=== PATIENT | male | born 2000 | race Caucasian/White ===

== ENCOUNTER 2021-10-27 23:20 | Inpatient (IN) | payer BC ==
[~2021-10-27] VITALS: Ht 182.9 cm; Wt 60.8 kg
--- NOTE | 2021-10-28 00:15 | NUR ---
PATIENT BIBSELF C/O RLQ PAIN SINCE 4PM. PATIENT +VOMITTED ONCE. PATIENT IS A/O X 4, RR EVEN AND UNLABORED, NO SOB NOTED. PATIENT CONNECTED TO CARDAIC AND POX MONITOR.
[2021-10-28] MEDS ORDERED: MORPHINE SULFATE INJ 2 MG/ML DISP.SYRIN ONE (00:20)
[2021-10-28] MEDS ORDERED: ONDANSETRON HCL/PF 4 MG/2 ML VIAL ONE (00:20)
[2021-10-28 00:28] LABS: BILIRUBIN,URINE SMALL (NEGATIVE); COLOR,URINE YELLOW (YELLOW); LEUKOCYTE ESTERASE ,URINE Negative (NEGATIVE); NITRITE, URINE Negative (NEGATIVE); PH,URINE 5.5 (5.0-8.0); PROTEIN,URINE Negative (NEGATIVE); UGLUCOSE 100 MG/DL mg/dL (NEGATIVE); UROBILINOGEN,URINE 0.2 EU/dL (0.2)
[2021-10-28 00:29] LABS: BASOPHILS # (AUTO) 0.2 K/uL (0.0-0.2); BASOPHILS % (AUTO) 1.5 % (0.0-2.0); HEMATOCRIT 48 % (39-51); HEMOGLOBIN 16.5 g/dL (13.5-17.5); LYMPHOCYTES # (AUTO) 0.9 K/uL (0.8-4.8); LYMPHOCYTES % (AUTO) 7.3 % (20.0-44.0); MEAN CORPUSCULAR HGB CONC 34 g/dl (31.0-36.0); MEAN CORPUSCULAR VOLUME 92 fL (80-96); MONOCYTES # (AUTO) 0.5 K/uL (0.1-1.30); MONOCYTES % (AUTO) 4.2 % (2.0-12.0); NEUTROPHILS # (AUTO) 11.1 K/uL (1.8-8.9); PLATELET COUNT (AUTO) 198 K/uL (150-450); RED BLOOD CELL COUNT(AUTO) 5.23 MIL/uL (4.5-6.0); WHITE BLOOD COUNT (AUTO) 12.9 K/uL (4.3-11.0)
[2021-10-28] MEDS ORDERED: IV NS 0.9% 500 ML BAG IV ONE (00:30)
[2021-10-28] MEDS ORDERED: MORPHINE SULFATE INJ 2 MG/ML DISP.SYRIN IV ONE (00:30)
[2021-10-28] MEDS ORDERED: ONDANSETRON HCL/PF 4 MG/2 ML VIAL IVP ONE (00:30)
[2021-10-28 00:35] LABS: CALCIUM, SERUM 9.1 mg/dL (8.5-10.1); POTASSIUM 4.2 mmol/L (3.5-5.1)
[2021-10-28 00:41] LABS: ALBUMIN 4.7 g/dL (3.4-5.0); BILIRUBIN,DIRECT 0.1 mg/dL (0.0-0.2); BILIRUBIN,TOTAL 0.5 mg/dL (0.2-1.0); TOTAL PROTEIN, SERUM 7.7 g/dL (6.4-8.2)
--- NOTE | 2021-10-28 00:54 | NUR ---
PT RETURNED FROM CT
[2021-10-28 01:25] LABS: BAND % (MANUAL) 1 % (0.0-5.0); LYMPHOCYTES % (MANUAL) 5 % (16-48); MONOCYTES % (MANUAL) 5 % (0-11.0); NEUTROPHILS % (MANUAL) 89 (42-76)
--- NOTE | 2021-10-28 01:25 | NUR ---
COVID SWAB COLLECTED AND SENT TO LAB
[2021-10-28] MEDS ORDERED: PIPERACILLIN /TAZOBACTAM 3.375 G VIAL IV ONE ×2 (01:26→05:23)
[2021-10-28] MEDS ORDERED: PIPERACILLIN /TAZOBACTAM 3.375 G in IV D5W 50 ML IV ONE (01:30)
[2021-10-28] MEDS ORDERED: ONDANSETRON HCL/PF 4 MG/2 ML VIAL IVP PRN (01:30)
[2021-10-28] MEDS ORDERED: MAG HYDROX/AL HYDROX/SIMETH 30 ML UDC PO PRN (01:30)
[2021-10-28] MEDS ORDERED: ACETAMINOPHEN 325 MG TABLET PO PRN (01:30)
[2021-10-28] MEDS ORDERED: MAGNESIUM HYDROXIDE 30 ML UDC PO PRN (01:30)
--- NOTE | 2021-10-28 03:05 | NUR ---
BED 306-2
--- NOTE | 2021-10-28 03:08 | NUR ---
REPORT GIVEN TO RN FOR CLAUDIA. PT WILL BE TRANSFERED.
[2021-10-28 03:45] VITALS: BP 13/88
[2021-10-28 03:50] VITALS: BP 133/88
[2021-10-28] MEDS: IV NS 0.9% 1,000 ML IV PRN (03:57)
--- NOTE | 2021-10-28 04:00 | NUR ---
Patient arrived at [facility] at 0345 accompanied by staff via [employer]. A&Ox4. Patient reports chief c/o as 8/10 abdominal pain currently. Initial VS 133/88, 67, 97% on RA, 97.9, and RR 19. Patient reports being fully covid vaccinated. Reports only allergy is to flovent, and only PMH is Asthma. Pupils equal and reactive to light. Can move all extremities evenly. Lung sounds clear, bowel sounds active, abdomen soft, non-distended but tender upon palpation, RLQ is where pain is the worst. Skin intact. Educated about pain management and surgical consult in the AM. Oriented pt. to staff, unit protocols, bed controls, and call light. Set up IVF for pt. RAC #18G intact and patent. Reminded pt. of NPO status.
[2021-10-28] MEDS: MORPHINE SULFATE INJ 2 MG/ML DISP.SYRIN IV PRN ×3 (04:08→12:42)
[2021-10-28] MEDS ORDERED: PIPERACILLIN /TAZOBACTAM 3.375 G in IV D5W 50 ML IV SCH (06:00)
--- NOTE | 2021-10-28 06:22 | NUR ---
Patient finally able to sleep after PRN pain medications. Patient currently sleeping though easy to wake. Tolerating IV ABX well. Uneventful since admission.
--- NOTE | 2021-10-28 07:30 | NUR ---
MS RN MORNING NOTES RECEIVED REPORT FROM NIGHT NURSE. PT IN BED AWAKE, A&OX4. PT DISPLAYS NO S/S OF RESPIRATORY DISTRESS OR DISCOMFORT AT THIS TIME. RIGHT AC #18G IN PLACE & PATENT WITH NS RUNNING @ 100ML/HR. SAFETY MEASURES IN PLACE. PATIENT WAS EDUCATED ON USE OF CALL LIGHT FOR ASSISTANCE. BED IS LOCKED AND IN LOWEST POSITION. WILL CONTINUE TO MONITOR PT.
[2021-10-28 08:00] VITALS: BP 127/64
[2021-10-28] MEDS ORDERED: ALBU8.5H8 IH (08:12)
[2021-10-28] MEDS: PIPERACILLIN /TAZOBACTAM 3.375 G in IV D5W 50 ML IV SCH ×3 (12:08→23:14)
[2021-10-28] MEDS ORDERED: BUPIVACAINE MPF W/EPI 0.25% 30 ML VIAL ONE (13:28)
[2021-10-28] MEDS ORDERED: FENTANYL PF 100MCG/2ML AMPUL ONE (13:57)
[2021-10-28] MEDS ORDERED: MIDAZOLAM HCL 2 MG/2ML VIAL ONE (13:57)
[2021-10-28] MEDS ORDERED: ROCURONIUM BROMIDE 50 MG/5 ML ONE (13:58)
--- NOTE | 2021-10-28 14:30 | NUR ---
RN NOTES PT WAS TRANSFERRED TO OR FOR PROCEDURE @ 7337.
[2021-10-28] MEDS ORDERED: ALBUTEROL 17GM INHALER ONE (14:41)
--- NOTE | 2021-10-28 16:45 | NUR ---
RN NOTES PT RETURNED FROM OR @ 1600. PT IS AWAKE, A/OX4. NO SIGNS OF RESPIRATORY DISTRESS OR DISCOMFORT AT THIS TIME. WILL CONTINUE TO MONITOR PT.
[2021-10-28] MEDS ORDERED: MORPHINE SULFATE INJ 2 MG/ML DISP.SYRIN IV PRN (17:00)
--- NOTE | 2021-10-28 18:23 | NUR ---
MS RN CLOSING NOTES PT IN BED WITH EYES CLOSED, ABLE TO BE AROUSED. PT DISPLAYS NO S/S OF RESPIRATORY DISTRESS OR DISCOMFORT AT THIS TIME. RIGHT AC #18G IN PLACE & PATENT WITH NS RUNNING @ 100ML/HR. SAFETY MEASURES IN PLACE. PATIENT WAS EDUCATED ON USE OF CALL LIGHT FOR ASSISTANCE. BED IS LOCKED AND IN LOWEST POSITION. WILL ENDORSE CLAUDIA TO THE INSPECTOR AND UNLOADER NURSE.
--- NOTE | 2021-10-28 19:30 | NUR ---
MS RN OPENING NOTES RECEIVED PT IN BED AWAKE. A/O X4. NO S/S OF RESPIRATORY DISTRESS OR DISCOMFORT AT THIS TIME. RIGHT AC #18G, NS RUNNING @ 100ML/HR, INTACT AND PATENT. NO S/S OF BLEEDING AT THIS TIME. SAFETY PRECAUTIONS IN PLACE. BED IN LOWEST LOCKED POSITION, HOB ELEVATED, SIDE RAILS UP X2, AND CALL LIGHT AND TABLE WITHIN REACH. WILL CONTINUE TO MONITOR.
[2021-10-28 20:00] VITALS: BP 117/63
[2021-10-29] MEDS: PIPERACILLIN /TAZOBACTAM 3.375 G in IV D5W 50 ML IV SCH ×2 (06:22→11:34)
[2021-10-29] MEDS: IV NS 0.9% 1,000 ML IV PRN (06:23)
--- NOTE | 2021-10-29 06:27 | NUR ---
RN NOTE GAVE NS 0.9% 100ML/HR AT 0500. GAVE ZOSYN 3.375 MG @ 100 ML/HR AT 0600. COMPUTER WAS DOWN.
--- NOTE | 2021-10-29 06:38 | NUR ---
MS RN CLOSING NOTES PT IN BED, EYES CLOSED, EASILY AROUSABLE. A/O X4. NO S/S OF RESPIRATORY DISTRESS OR DISCOMFORT AT THIS TIME. RIGHT AC #18G, NS RUNNING @ 100ML/HR, INTACT AND PATENT. NO S/S OF BLEEDING AT THIS TIME. ALL NEEDS MET AT THIS TIME. SAFETY PRECAUTIONS IN PLACE AT ALL TIMES. BED IN LOWEST LOCKED POSITION, HOB ELEVATED, SIDE RAILS UP X2, AND CALL LIGHT AND TABLE WITHIN REACH. WILL ENDORSE TO ONCOMING NURSE FOR CLAUDIA.
[2021-10-29 06:42] LABS: BASOPHILS % (AUTO) 0.1 % (0.0-2.0); HEMATOCRIT 40 % (39-51); HEMOGLOBIN 13.9 g/dL (13.5-17.5); LYMPHOCYTES # (AUTO) 1.2 K/uL (0.8-4.8); LYMPHOCYTES % (AUTO) 10.6 % (20.0-44.0); MEAN CORPUSCULAR HGB CONC 35 g/dl (31.0-36.0); MEAN CORPUSCULAR VOLUME 92 fL (80-96); MONOCYTES # (AUTO) 0.7 K/uL (0.1-1.30); MONOCYTES % (AUTO) 6.7 % (2.0-12.0); NEUTROPHILS % (AUTO) 82.6 % (43.0-81.0); PLATELET COUNT (AUTO) 166 K/uL (150-450); RED BLOOD CELL COUNT(AUTO) 4.35 MIL/uL (4.5-6.0); WHITE BLOOD COUNT (AUTO) 10.9 K/uL (4.3-11.0)
[2021-10-29 07:05] LABS: CALCIUM, SERUM 8.9 mg/dL (8.5-10.1); CREATININE 1.1 mg/dL (0.6-1.3); MAGNESIUM 1.8 mg/dL (1.8-2.4); PHOSPHORUS 4.1 mg/dL (2.5-4.9)
--- NOTE | 2021-10-29 07:30 | NUR ---
MS RN OPENING NOTES RECEIVED PATIENT ON BED AWAKE AND A/O X4. ON ROOM AIR SATURATING WELL AT 97%, BREATHING EVENLY AND UNLABORED. NOT IN DISTRESS. WITH NO COMPLAINTS OF PAIN OR DISCOMFORT AT THIS TIME. WITH IV ACCESS AT RIGHT AC G18 WITH IVF NS AT 100ML/HR INFUSING WELL. SAFETY MEASURES IN PLACE. CALL LIGHT WITHIN REACH. BED ON LOWEST AND LOCKED POSITION, SIDE RAILS UP X2. WILL CONTINUE TO MONITOR.
[2021-10-29 08:00] VITALS: BP 108/69
--- NOTE | 2021-10-29 15:17 | NUR ---
MS FIELD INSTALLER NOTES PATIENT WAS SEEN BY DR. BURT WITH ORDERS FOR DISCHARGE. PATIENT IS FOR DISCHARGE TO HOME. DISCHARGE INSTRUCTION AND EDUCATION PROVIDED TO PATIENT AND EXPLAINED MEDICATIONS AND PRESCRIPTIONS. PATIENT VERBALIZED UNDERSTANDING. DISCHARGE FORM AND BELONGINGS LIST FORM SIGNED BY PATIENT. ALL BELONGINGS ACCOUNTED FOR. NAME WRIST BAND AND IV LINE REMOVED. ASSISTED PATIENT TO THE LOBBY WITH HIS FRIEND. PATIENT LEFT WITH HIS FRIEND IN STABLE CONDITION. CHARGE NURSE AND MD ARE AWARE OF THE DISCHARGE.
== END 2021-10-29 15:12 | disposition home or self-care (01) | DRG 340 ==
LOC: ER 23:29 → MED 10-28 03:11
PROVIDERS: ADMIT Student in an Organized Health Care Education/Training Program; ATTEND Student in an Organized Health Care Education/Training Program
PROC: 0DTJ4ZZ Resection of Appendix, Percutaneous Endoscopic Approach (ICD-10-PCS; principal; 2021-10-28)
DX: K35.32 Acute appendicitis with perforation, localized peritonitis, and gangrene, without abscess (principal); J45.909 Unspecified asthma, uncomplicated; Z20.822 Contact with and (suspected) exposure to COVID-19; Z79.51 Long term (current) use of inhaled steroids
CPT/HCPCS: 36415; 71045-TC; 80048-TC; 80076-TC; 83690-TC; 83735-TC; 84100-TC; 85025-TC; 87081-TC; C9803; G0378; J2250; J2270; J2405; J2543; J3010; J3490; J7030; J7040; J7060

== ENCOUNTER 2021-12-28 00:04 | Inpatient (IN) | payer BC ==
[~2021-12-28] VITALS: Ht 182.9 cm; Wt 62.1 kg
[~2021-12-28 00:04] MED LIST: ALBU8.5H8 IH
--- NOTE | 2021-12-28 00:20 | NUR ---
BIBS FOR C/O L ARM NUMBNESS AND LIGHTHEADEDNESS. PT A/OX4. TOLERATING R/A WELL WITH NO SOB CONNECTED PT TO POX AND MONITOR.
[2021-12-28] MEDS ORDERED: ONDANSETRON HCL/PF 4 MG/2 ML VIAL ONE (00:49)
[2021-12-28] MEDS ORDERED: LORAZEPAM INJ 2 MG/ML VIAL ONE (00:50)
--- NOTE | 2021-12-28 00:55 | NUR ---
LAC #18G S/L; PATENT AND INTACT.
[2021-12-28 00:56] LABS: BASOPHILS # (AUTO) 0.1 K/uL (0.0-0.2); BASOPHILS % (AUTO) 1.2 % (0.0-2.0); EOSINOPHILS % (AUTO) 2.9 % (0.0-6.0); HEMATOCRIT 41 % (39-51); HEMOGLOBIN 14.6 g/dL (13.5-17.5); LYMPHOCYTES # (AUTO) 1.9 K/uL (0.8-4.8); LYMPHOCYTES % (AUTO) 40.6 % (20.0-44.0); MEAN CORPUSCULAR HGB CONC 36 g/dl (31.0-36.0); MEAN CORPUSCULAR VOLUME 91 fL (80-96); MONOCYTES # (AUTO) 0.4 K/uL (0.1-1.30); MONOCYTES % (AUTO) 9.3 % (2.0-12.0); NEUTROPHILS # (AUTO) 2.2 K/uL (1.8-8.9); PLATELET COUNT (AUTO) 174 K/uL (150-450); RED BLOOD CELL COUNT(AUTO) 4.52 MIL/uL (4.5-6.0); WHITE BLOOD COUNT (AUTO) 4.7 K/uL (4.3-11.0)
[2021-12-28] MEDS ORDERED: IV NS 0.9% 1,000 ML BAG IV ONE (01:00)
[2021-12-28] MEDS ORDERED: LORAZEPAM INJ 2 MG/ML VIAL IV ONE (01:00)
[2021-12-28] MEDS ORDERED: ONDANSETRON HCL/PF 4 MG/2 ML VIAL IVP ONE (01:00)
[2021-12-28 01:04] LABS: CARBON DIOXIDE 28 mmol/L (21-32); CHLORIDE 103 mmol/L (98-107); GLUCOSE 95 mg/dL (74-106); POTASSIUM 3.5 mmol/L (3.5-5.1); SODIUM SERUM 139 mmol/L (136-145); UREA NITROGEN, BLOOD 12 mg/dL (7-18)
[2021-12-28] MEDS ORDERED: MAGNESIUM HYDROXIDE 30 ML UDC PO PRN (02:30)
[2021-12-28] MEDS ORDERED: ONDANSETRON HCL/PF 4 MG/2 ML VIAL IVP PRN (02:30)
[2021-12-28] MEDS ORDERED: MAG HYDROX/AL HYDROX/SIMETH 30 ML UDC PO PRN (02:30)
[2021-12-28] MEDS ORDERED: ACETAMINOPHEN 325 MG TABLET PO PRN (02:30)
--- NOTE | 2021-12-28 03:02 | NUR ---
PT SLEEPING; HR AT 38. WOKE UP PT & HR WENT UP TO 58. PT DENIES S/SX AND THIS TIME. ALL NEEDS MET AT THIS TIME.
--- NOTE | 2021-12-28 06:54 | NUR ---
PT AWAKE. ADLS DONE. PT DENIES S/SX OF PAIN OR DISTRESS.
[2021-12-28] MEDS ORDERED: PANTOPRAZOLE 40 MG TABLET.DR PO SCH (07:30)
[2021-12-28] MEDS ORDERED: PANTOPRAZOLE 40 MG TABLET.DR PO ONE (07:40)
--- NOTE | 2021-12-28 10:09 | NUR ---
REPORT GIVEN TO WOOD FOR CLAUDIA
--- NOTE | 2021-12-28 10:22 | NUR ---
PT BEING TRANSFERED TO ME ROOM WITH ACLS PROTOCOLS IN PLACE
--- NOTE | 2021-12-28 10:45 | NUR ---
GRAZING EXAMINERTRIPPER NOTES RECEIVED PT FROM ER. PT A/A/O X 4. NO SIGNS OF ACUTE DISTRESS NOTED. BREATHING IS EVEN AND UNLABORED. NO C/O PAIN. SKIN CHECK DONE. IV ACCESS LAC#18 PATENT, INTACT AND FLUSHING WELL. ORIENTED PATIENT TO ROOM ,UNIT, STAFF AND CALL LIGHT WITH TV CONTROLLER. EXTERNAL PLATE TAKE OUT WORKER PLACED ON PT WITH SINUS MANOLO 47 READING ON MONITOR. SAFETY MEASURES IN PLACE WITH BED LOCKED IN LOW POSITION AND SIDE RAILS UP X 2. WILL MONITOR PATIENT THROUGHOUT SHIFT.
[2021-12-28] MEDS ORDERED: ALBUTEROL FS 2.5 MG/3 ML VIAL.NEB NEB PRN (11:30)
[2021-12-28] MEDS ORDERED: ALBUTEROL SULFATE 8 GM HFA.AER.AD IH PRN (11:30)
[2021-12-28 16:05] VITALS: BP 128/69
--- NOTE | 2021-12-28 18:41 | NUR ---
DISCHARGE NOTES PT WAS DISCHARGED WITH STABLE VITAL SIGNS. NO S/SX OF DISTRESS NOTED. NO SOB. BREATHING IS EVEN AND UNLABORED. IV ACCESS REMOVED. TELE MONITOR REMOVED. DC INSTRUCTIONS REVIEWED WITH PATIENT AND SIGNED; VERBALIZED UNDERSTANDING. PT WAS PICKED UP BY ROOMMATE SYNAGOGUE. OBSERVED PT LEAVE UNIT AT THIS TIME.
== END 2021-12-28 18:23 | disposition home or self-care (01) | DRG 310 ==
LOC: ER 00:04 → TRANSITION 02:54 → TELE 10:06
PROVIDERS: ADMIT Nurse Practitioner Family; ATTEND Nurse Practitioner Family
DX: R00.1 Bradycardia, unspecified (principal); Z90.49 Acquired absence of other specified parts of digestive tract; Z91.09 Other allergy status, other than to drugs and biological substances; Z79.51 Long term (current) use of inhaled steroids; J45.909 Unspecified asthma, uncomplicated; F41.9 Anxiety disorder, unspecified; F12.90 Cannabis use, unspecified, uncomplicated
CPT/HCPCS: 36415; 71045-TC; 80048-TC; 84484-TC; 85025-TC; 85378-TC; 93307-TC; G0378; J2060; J2405; J7030

== ENCOUNTER 2021-12-30 15:40 | Emergency (ER) | payer BC ==
[~2021-12-30] VITALS: Ht 182.9 cm; Wt 61.2 kg
--- NOTE | 2021-12-30 16:17 | NUR ---
HEADACHE, CHILLS X 2 DAYS. DENIES N/V/D
--- NOTE | 2021-12-30 17:43 | NUR ---
seen and evaluated by dr mendez. discharge in stable condition.
[2021-12-30 17:44] VITALS: BP 121/72
== END 2021-12-30 17:45 | disposition home or self-care (01) ==
LOC: ER 15:41
DX: M54.12 Radiculopathy, cervical region (principal); Z90.89 Acquired absence of other organs; Z88.8 Allergy status to other drugs, medicaments and biological substances; Z79.51 Long term (current) use of inhaled steroids